=== PATIENT | male | born 1945 | race Caucasian/White ===

== ENCOUNTER → 2022-09-06 | Outpatient (CLI) | payer MEDICARE, OTHER, SELFPAY ==
--- NOTE | 2022-09-06 07:55 | CT_ITS ---
PROCEDURE: CT RIGHT KNEE WITHOUT CONTRAST REASON FOR EXAM: Male, 77 years old. Preoperative planning for the [employer] Robotic knee surgery. Knee pain. TECHNIQUE: Transaxial CT of the hip, knee and ankle were obtained. Coronal and sagittal reconstruction images of the knee were provided. Individualized dose optimization techniques were used for this CT. COMPARISON: None. FINDINGS: Standard protocol for the preoperative planning for the [employer] robotic knee surgery was performed. Mild osteoarthrosis of the hip and knee. CT/Extremity Lower without Contra IMPRESSION: Preoperative [employer] Robotic knee surgical CT evaluation with findings as described above. Electronically Signed: Luis Carlos, at 10:28 EST ,
== END | disposition home or self-care (01) ==
PROVIDERS: PCP Family Medicine; Visit Provider Specialist
DX: M21.161 Varus deformity, not elsewhere classified, right knee (principal)
CPT/HCPCS: 73700

== ENCOUNTER → 2022-09-17 | Outpatient (CLI) | payer MEDICARE, OTHER, SELFPAY ==
--- NOTE | 2022-09-17 08:55 | AAVD_ITS ---
Reason For Study: SCREENING FOR AAA Aorta Measurements Aorta Doppler Measurements Proximal aorta measures2.07 x 1.96cm. in cross- Peak systolic flow velocities within the proximal sectional axis. aorta measure 47.9 cm/sec. Proximal aorta measures1.88cm. in longitudinal Peak systolic flow velocities within the mid aorta axis. measure 67.7 cm/sec. Mid aorta measures1.81 x 1.72cm. in cross- Peak systolic flow velocities within the distal sectional axis. aorta measure 73.2 cm/sec. Mid aorta measures1.78cm. in longitudinal axis. Distal aorta measures1.96 x 1.83cm. in cross- sectional axis. Distal aorta measures1.82cm. in longitudinal axis. Left Iliac Artery Left iliac artery measures 1.02 x 1.02 cm. in the cross-sectional axis. Left iliac artery measures 1.02 cm. in the longitudinal axis. Peak systolic velocity in the left iliac artery measures 75.4 cm/sec. Right Iliac Artery Right iliac artery measures 1.19 x 1.15 cm. in the cross-sectional axis. Right iliac artery measures 1.0 cm. in the longitudinal axis. Peak systolic velocity in the right iliac artery measures 96.2 cm/sec. Procedure Aorta IVC Iliac vasculature or bypass grafts 88010. The exam was diagnostic. Exam performed in department. VL/Abd Aortic/IVC Duplex scan Interpretation Summary Aorta patent, normal caliber Bilateral iliac arteries patent, normal caliber Ordering Physician: Escobar Pruett Referring Physician: Escobar Pruett Performed By: Mikki Valdes, ALIE, RVT
== END | disposition home or self-care (01) ==
LOC: CVS 08:52
PROVIDERS: PCP Family Medicine; Visit Provider Family Medicine
DX: I10 Essential (primary) hypertension (principal); Z13.5 Encounter for screening for eye and ear disorders
CPT/HCPCS: 93978

== ENCOUNTER → 2022-10-11 | Outpatient (CLI) | payer MEDICARE, OTHER, SELFPAY ==
--- NOTE | 2022-10-11 09:41 | EKG12_ITS ---
Test Reason : PREOP Blood Pressure : / mmHG Vent. Rate : 052 BPM Atrial Rate : 052 BPM P-R Int : 282 ms QRS Dur : 090 ms QT Int : 432 ms P-R-T Axes : 038 062 060 degrees QTc Int : 401 ms Sinus bradycardia with 1st degree A-V block Otherwise normal ECG Confirmed by ERIKA RENTERIA, ELISA ([id number]), electronic news gathering editor ANT ABDULLAHI ([id number]) on 10/15/2022 10:43:16 AM Referred By: Xavi Echeverria Confirmed By:TIMOTHY JAMES MD
[2022-10-11 10:53] LABS: Absolute Lymphocyte Count 2.03 X10^3/uL (0.83-4.51); Absolute Neutrophil Count 3.5 X10^3/uL (2.0-7.7); Basophil# 0.05 X10^3/uL; Basophil% 0.8 % (0-1); Eosinophil# 0.22 X10^3/uL; Eosinophils% 3.4 % (0-5); Hematocrit 42.1 % (40-54); Hemoglobin 14.2 g/dL (13.0-16.5); Lymphocyte # 2.03 X10^3/ul (0.83-4.51); Lymphocyte % 31.7 % (19-41); Mean Corp Hgb Conc 33.7 g/dL (32-36); Mean Corpuscular Hgb 30.5 pg (27.0-32.0); Mean Corpuscular Volume 90.5 fL (80-94); Mean Platelet Vol. 10.7 fl (6.2-12.0); Monocyte% 9.4 % (0-10); NRBC Flagged by Analyzer 0 % (0-5); Neutrophil # 3.49 X10^3/uL (2.7-7.7); Neutrophil % 54.4 % (47-70); Platelet Count 171 K/mm3 (150-450); RBC Distribution Width SD 42.3 fl (35.1-43.9); Red Blood Count 4.65 M/mm3 (4.6-6.2); White Blood Count 6.4 K/mm3 (4.4-11.0)
[2022-10-11 11:05] LABS: Anion Gap 8 (5-15); BUN 21 mg/dL (7-18); BUN/Creat Ratio 18.3 RATIO (10-20); Calcium,Total 10.4 mg/dL (8.5-10.1); Chloride 105 mmol/L (98-107); Creatinine, Serum 1.15 mg/dL (0.70-1.30); EST Glomerular Filtration Rate 66 mL/min (>60); Est Glom Filt Rate - Afr Amer 80 mL/min (>60); Glucose 110 mg/dL (74-106); Potassium 3.8 mmol/L (3.5-5.1); Sodium Level 139 mmol/L (136-145)
== END | disposition home or self-care (01) ==
PROVIDERS: PCP Family Medicine; Referring Provider Physician Assistant Surgical; Visit Provider Physician Assistant Surgical
DX: Z01.818 Encounter for other preprocedural examination (principal); Z01.810 Encounter for preprocedural cardiovascular examination
CPT/HCPCS: 36415; 80048; 82040; 85025; 93005

== ENCOUNTER 2023-02-15 09:12 | Emergency (ER) | payer MEDICARE, OTHER, SELFPAY ==
[2023-02-15 09:13] VITALS: BP 117/77; PULSE 66; RESP 14; TEMP 36.9; O2SAT 93; BMI 29.1
--- NOTE | 2023-02-15 10:03 | CT_ITS ---
STUDY: CT FACIAL BONES WITHOUT CONTRAST REASON FOR EXAM: Male, 78 years old. Trauma RADIATION DOSAGE (If Supplied By Facility): CTDIvol = ( 29.38 ) mGy, DLP = ( 606.22 ) mGycm TECHNIQUE: The patient was scanned in a multi detector CT scanner. Sagittal and coronal images were reconstructed. Individualized dose optimization techniques were used for this CT. COMPARISON: None. FINDINGS: Soft tissue swelling overlying the right anterior maxillary region with findings suggestive of overlying laceration. Right periorbital soft tissue swelling as well. Small amount of air is seen deep in the soft tissues overlying the right orbital wall and right lateral maxillary wall. I suspect a nondisplaced fracture of the lateral wall of the right maxillary sinus superiorly. Questionable nondisplaced fracture of the right lateral orbital wall. Normal nasal bones and anterior nasal spine. Mucosal thickening of the inferior aspect of the right maxillary sinus as well as partial opacification of the ethmoid sinuses and left frontal sinus as well as mucosal thickening of the right sphenoid sinus. CT/Sinus/Facial Bone IMPRESSION: Findings suggestive of a subtle nondisplaced fracture of the lateral right orbital wall as well as the right lateral maxillary wall. Sinusitis. Electronically Signed: Leonel Doe MD at 11:04 EDT ,
--- NOTE | 2023-02-15 10:03 | CT_ITS ---
STUDY: CT BRAIN WITHOUT CONTRAST REASON FOR EXAM: Male, 78 years old. History of fall. Soft tissue swelling and laceration overlying the right orbit and right maxillary region. RADIATION DOSAGE (If Supplied By Facility): CTDIvol = ( 44.99 ) mGy, DLP = ( 779.24 ) mGycm TECHNIQUE: Transaxial CT imaging of the brain was performed without administration of intravenous contrast material. Individualized dose optimization techniques were used for this CT. COMPARISON: No relevant priors. FINDINGS: Right periorbital and right maxillary soft tissue swelling. Normal calvarium. Normal size ventricles and extra-axial spaces for the patient''s age. Normal white matter tracts of the cerebral hemispheres. Normal basal ganglia and thalami. Normal brainstem. Normal cerebellum. There is no intracranial hemorrhage. There are no findings of an acute ischemic infarction. Mucosal thickening at the base of the right maxillary sinus. Partial opacification of the ethmoid sinuses. Partial opacification of the left frontal sinus. CT/Brain/Head without Contrast IMPRESSION: Normal unenhanced CT scan of the brain. Sinusitis. Soft tissue swelling overlying the right periorbital and right maxillary region. Electronically Signed: Leonel Doe MD at 11:01 EDT ,
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
[2023-02-15] MEDS: Lidocaine 1% (20 ml mdv) 20 ML Vial INFILT (10:37)
[2023-02-15 11:16] VITALS: BP 136/64; PULSE 78; RESP 14; TEMP 36.4; O2SAT 100
[2023-02-15] MEDS: Diphth,Pertuss(Acell),Tet Vac 0.5 ML Vial IM (11:16)
[2023-02-15] MEDS: Cephalexin 250 MG Capsule 500 MG PO (11:24)
== END 2023-02-15 11:33 | disposition home or self-care (01) ==
PROVIDERS: Emergency Provider Emergency Medicine; PCP Family Medicine; Visit Provider Emergency Medicine
DX: S01.81XA Laceration without foreign body of other part of head, initial encounter (principal); S02.841A Fracture of lateral orbital wall, right side, initial encounter for closed fracture; S02.40CA Maxillary fracture, right side, initial encounter for closed fracture; E78.00 Pure hypercholesterolemia, unspecified; Z87.891 Personal history of nicotine dependence; I10 Essential (primary) hypertension; W01.0XXA Fall on same level from slipping, tripping and stumbling without subsequent striking against object, initial encounter; Z23 Encounter for immunization
CPT/HCPCS: 12013; 70450; 70486; 90471; 90715; 99285

== ENCOUNTER → 2025-04-13 | Outpatient (CLI) | payer MEDICARE, OTHER, SELFPAY | END | disposition home or self-care (01) | LOC: SL 20:09 | PROVIDERS: PCP Family Medicine; Referring Provider Nurse Practitioner Acute Care; Visit Provider Nurse Practitioner Acute Care | DX: G47.33 Obstructive sleep apnea (adult) (pediatric) (principal) | CPT/HCPCS: 95811 ==